=== PATIENT | female | born 1945 | race African-American/Black ===

== ENCOUNTER 2018-10-22 15:08 | Emergency (ER) | payer MEDICARE, MEDICAID ==
[~2018-10-22] VITALS: Ht 165.1 cm; Wt 57.0 kg
[~2018-10-22 15:08] MED LIST: ALBUTEROL; COMBIVENT; DETLA2; FLONASE; HYDR-3162; IBUP-2030; LORA10TA7; QVAR80; TRAM50TA94; ZOLP10TA6
[2018-10-22 17:41] VITALS: BP 130/68
== END 2018-10-22 17:55 | disposition home or self-care (01) ==
LOC: ER 16:05
DX: R21 Rash and other nonspecific skin eruption (principal); J44.9 Chronic obstructive pulmonary disease, unspecified; Z98.890 Other specified postprocedural states; Z79.899 Other long term (current) drug therapy
CPT/HCPCS: 99283

== ENCOUNTER 2019-03-28 16:03 | Emergency (ER) | payer MEDICARE, MEDICAID ==
[~2019-03-28] VITALS: Ht 162.6 cm; Wt 54.0 kg
[2019-03-28] MEDS ORDERED: KETOROLAC 60MG/2ML VIAL IM ONE (19:30)
[2019-03-28] MEDS ORDERED: HYDROCODONE/ACETAMINOPHEN 5/325MG TABLET PO ONE (19:30)
[2019-03-28 23:42] LABS: BASOPHILS % 0.4 % (0.0-2.0); EOSINOPHILS % 6.8 % (0.0-5.0); HEMATOCRIT. 34.7 % (36.0-48.0); HEMOGLOBIN. 11.7 g/dL (12.0-16.0); LYMPHOCYTES % 38.7 % (20.0-50.0); MEAN CORPUSCULAR HEMOGLOBIN 30.1 pg (28.0-32.0); MEAN CORPUSCULAR VOLUME 89.6 fL (81.0-99.0); MEAN PLATELET VOLUME 7.6 fl (7.4-10.4); NEUTROPHILS % 45.1 % (40.0-76.0); PLATELET 148 x1000/uL (130-400); RED BLOOD CELL COUNT 3.88 mill/uL (4.2-5.4); RED CELL DISTRIBUTION WIDTH 15.1 % (11.6-14.6)
[2019-03-28] MEDS ORDERED: MORPHINE SULFATE 4 MG/ML CPJ (NOT FOR IM USE) IV ONE (23:45)
[2019-03-28 23:48] LABS: CHLORIDE 113 mEq/L (98-107)
[2019-03-29 03:19] VITALS: BP 116/64
== END 2019-03-29 03:23 | disposition short-term general hospital (02) ==
LOC: ER 16:03
DX: S32.048A Other fracture of fourth lumbar vertebra, initial encounter for closed fracture (principal); J44.9 Chronic obstructive pulmonary disease, unspecified; Z98.890 Other specified postprocedural states; Z79.899 Other long term (current) drug therapy; W18.39XA Other fall on same level, initial encounter; Y93.89 Activity, other specified; Y92.89 Other specified places as the place of occurrence of the external cause; Y99.8 Other external cause status
CPT/HCPCS: 36415; 72131; 72170; 80053; 85025; 96372; 96374; 99285; J1885; J2270